=== PATIENT | male | born 1960 | race Caucasian/White ===

== ENCOUNTER 2016-12-06 09:13 | Outpatient (CLI) | payer SELFPAY ==
[2015-11-29 10:26] VITALS: BP 109/74
[2016-12-06 09:30] LABS: BASOPHILS % 0.9 (0.0-1.5); EOSINOPHILS % 2.6 % (0.0-6.8); MEAN CORPUSCULAR HEMOGLOBIN 30.4 pg (28.0-34.0); MEAN CORPUSCULAR VOLUME 88.6 fl (80.0-100.0); MONOCYTES % 5.8 % (0.0-11.0); NEUTROPHILS # 2.5 # k/uL (1.4-7.7)
[2016-12-06 09:59] LABS: eGFR (African) > 60; eGFR (Non-African) 51
== END 2016-12-06 09:14 ==
LOC: LAB 09:13
PROVIDERS: ATTEND Physician Assistant
DX: E11.9 Type 2 diabetes mellitus without complications (principal); Z00.00 Encounter for general adult medical examination without abnormal findings; E78.00 Pure hypercholesterolemia, unspecified
CPT/HCPCS: 36415; 80053; 80061; 83036; 84443; 85025